=== PATIENT | male | born 1965 | race Two or more races ===

== ENCOUNTER 2022-05-12 12:25 | Emergency (ER) | payer OTHER ==
[2022-05-12 12:57] VITALS: RESP 20; TEMP 98.2; BMI 29.0
[2022-05-12] MEDS ORDERED: ACETAMINOPHEN 1000 MG/100 ML BAG IVPB ONE (14:27)
[2022-05-12] MEDS ORDERED: SODIUM CHLORIDE 1,000 ML IV STA (14:27)
[2022-05-12] MEDS ORDERED: METOCLOPRAMIDE HCL INJECTION 10 MG/2 ML VIAL IVPB ONE (14:27)
[2022-05-12] MEDS ORDERED: ACETAMINOPHEN INJECTION 100 ML IVPB ONE (14:48)
[2022-05-12] MEDS ORDERED: METOCLOPRAMIDE HCL INJECTION 10 MG/2 ML VIAL ONE (14:48)
[2022-05-12 15:34] LABS: BASO % 0.2 % (0-2.0); EOS % 0.3 % (0-4.5); HEMATOCRIT 43.2 % (35.4-49); HEMOGLOBIN 14.3 GM/dL (11.7-16.9); LYMPH % 16.2 % (8-40); MCH 26.6 pg (25.7-33.7); MCHC 33.1 g/dl (32.0-35.9); MEAN CELL VOLUME 80.2 fl (80-96); MEAN PLT VOLUME 8.5 fl (7.5-11.1); MONO % 4.3 % (3.8-10.2); PLATELET COUNT 226 10^3/uL (134-434); RBC 5.38 M/mm3 (4.00-5.60); WHITE BLOOD COUNT 10.7 K/mm3 (4.0-10.0)
[2022-05-12 16:50] LABS: CHLORIDE 104 mmol/L (98-107); SODIUM 131 mmol/L (136-145)
[2022-05-12 16:53] LABS: BLOOD UREA NITROGEN 9.9 mg/dL (7-18); CALCIUM 8.6 mg/dL (8.5-10.1); CO2 26 mmol/L (21-32); GLUCOSE,RANDOM 115 mg/dL (74-106)
[2022-05-12 16:54] LABS: ALBUMIN 3.5 g/dl (3.4-5.0)
[2022-05-12 16:57] LABS: CREATININE 0.7 mg/dL (0.55-1.3)
[2022-05-12 16:58] LABS: TOT PROT 8.5 g/dl (6.4-8.2)
[2022-05-12 16:59] LABS: ALK PHOS 114 U/L (45-117)
[2022-05-12 17:00] LABS: ANION GAP 1 MMOL/L (8-16)
[2022-05-12 17:16] VITALS: BP 169/92; PULSE 65
== END 2022-05-12 17:15 | disposition left against medical advice (07) ==
LOC: JER 12:25
PROC: 3E033GC Introduction of Other Therapeutic Substance into Peripheral Vein, Percutaneous Approach (ICD-10-PCS; principal; 2022-05-12)
DX: R07.89 Other chest pain (principal); R51.9 Headache, unspecified
CPT/HCPCS: 70450-TC; 71046-TC-FY; 73070-TC-LT-FY; 80053; 82962; 84484; 85025; 93005; 93010; 99285-25